=== PATIENT | female | born 1980 | race Caucasian/White ===

== ENCOUNTER 2025-05-16 06:09 | Emergency (ER) | payer SELFPAY ==
[2025-05-16] MEDS: Ketorolac 30 MG/ML SDV IVPUSH ONE (06:38)
[2025-05-16 06:53] LABS: BASOPHILS ABSOLUTE AUTO 0.1 x10-3/uL (0.0-0.1); BASOPHILS PERCENT AUTO 0.7 % (0.2-1.5); EOSINOPHILS ABSOLUTE AUTO 0.2 x10-3/uL (0.0-0.8); EOSINOPHILS PERCENT AUTO 2.2 % (0.6-8.1); LYMPHOCYTES ABSOLUTE AUTO 1.2 x10-3/uL (1.0-4.4); LYMPHOCYTES PERCENT AUTO 10.5 % (18.4-52.1); MEAN PLATELET VOLUME 7.4 fL (7.1-12.4); MONOCYTES ABSOLUTE AUTO 0.7 x10-3/uL (0.3-1.0); MONOCYTES PERCENT AUTO 6.7 % (4.4-15.7); NEUTROPHILS ABSOLUTE AUTO 8.8 x10-3/uL (1.5-6.3); NEUTROPHILS PERCENT AUTO 79.9 % (30.8-76.2); PLATELET COUNT,PLT 265 x10(3)uL (151-488); RED BLOOD CELL COUNT 4.72 x10(6)uL (3.60-5.20); RED CELL DISTRIBUTION WIDTH 12.5 % (12.3-16.5); WHITE BLOOD CELL COUNT,WBC 11.0 x10-3/uL (3.0-10.3)
[2025-05-16 07:01] LABS: BLOOD UREA NITROGEN,BUN 10 mg/dL (7-18); CARBON DIOXIDE,CO2 29 mmol/L (21-32); CHLORIDE,CL 102 mmol/L (100-110); CREATININE 0.8 mg/dL (0.55-1.02); EST CRCL DRUG DOSING (CG) 75.88 mL/min; ESTIMATED GFR 92 mL/min (>60); GLUCOSE RANDOM 102 mg/dL (80-116); POTASSIUM,K 3.5 mmol/L (3.5-5.3); SODIUM,NA 140 mmol/L (135-145)
[2025-05-16] MEDS: HYDROmorphone 2 MG/ML SDV IVPUSH ONE (07:04)
[2025-05-16 07:06] LABS: A/G RATIO 1.2; ALANINE AMINOTRANSFERASE,ALT 37 U/L (12-36); ASPARTATE AMNIOTRANSFERASE,AST 21 IU/L (5-25); BILIRUBIN TOTAL 0.6 mg/dL (0.1-1.3); PROTEIN TOTAL,TP 7.8 g/dL (6.0-8.0)
[2025-05-16] MEDS: Iopamidol 755 Mg/ML 100 ML Bottle IV ONE (08:35)
== END 2025-05-16 08:59 | disposition home or self-care (01) ==
LOC: FB.ED 06:09
DX: K64.5 Perianal venous thrombosis (principal); N83.201 Unspecified ovarian cyst, right side; F17.200 Nicotine dependence, unspecified, uncomplicated; Z90.710 Acquired absence of both cervix and uterus; Z91.041 Radiographic dye allergy status
CPT/HCPCS: 36415; 74177; 80053; 85025; 96374; 96375; 99284-25; J1171; J1885; Q9967